=== PATIENT | female | born 1940 | race Caucasian/White ===

== ENCOUNTER 2019-05-31 06:40 | Outpatient (CLI) | payer MEDICARE, OTHER, SELFPAY ==
[2019-05-31 07:27] LABS: Alanine Aminotransferase 14 U/L (4-35); Albumin Level 4.2 g/dL (3.5-5.1); Alkaline Phosphatase 75 U/L (38-126); Aspartate Amino Transferase 21 U/L (14-36); Bilirubin,Total 0.6 mg/dL (0.2-1.3); Blood Urea Nitrogen 14 mg/dL (7-17); Calcium 9.4 mg/dL (8.4-10.2); Carbon Dioxide 25 mmol/L (22-30); Chloride 105 mmol/L (98-107); Cholesterol 162 mg/dL (0-200); Estimated Glomerular Filt Rate > 60; Glucose 128 mg/dL (65-105); HDL Direct 41 mg/dL; Potassium 3.8 mmol/L (3.4-5.0); Sodium 140 mmol/L (137-145); Triglycerides 151 mg/dL (<150)
[2019-05-31 07:39] LABS: LDL Cholesterol Direct 99 mg/dL
[2019-05-31 07:45] LABS: Hemoglobin A1C 5.7 % (<5.7)
[2019-05-31 08:19] LABS: Vitamin D 25 Hydroxy 40.2 ng/mL
== END 2019-05-31 06:41 | disposition home or self-care (01) ==
PROVIDERS: PCP Internal Medicine; Visit Provider Internal Medicine
DX: I10 Essential (primary) hypertension (principal); Z79.899 Other long term (current) drug therapy; R73.02 Impaired glucose tolerance (oral); E78.5 Hyperlipidemia, unspecified; E55.9 Vitamin D deficiency, unspecified
CPT/HCPCS: 36415; 80053; 80061; 82306; 83036

== ENCOUNTER 2019-06-06 10:56 | Outpatient (CLI) | payer MEDICARE, OTHER, SELFPAY ==
--- NOTE | ~2019-06-06 | US_ITS ---
EXAMINATION: US carotid duplex BI DATE: 06/06/2019 11:35 INDICATION: Carotid atherosclerosis and stenosis. Transient ischemic episode. TECHNIQUE: Grayscale, color Doppler, and pulsed Doppler images of the cervical carotid arteries were obtained. The degree of vessel stenosis is placed in one of the following categories: normal, <50%, 5 0-69%, >=70% but less than near-occlusion, near-occlusion, or total occlusion. Note that percent sten osis relative to normal distal artery lumen diameter is indirectly measured from velocity measurement s as described by Joshua, et al. Radiology 2003; 229:340-346. COMPARISON: 12/21/2012 FINDINGS: RIGHT: The right common carotid artery (CCA) peak systolic velocity (PSV) is 87 cm/s. The right internal car otid artery (ICA) PSV is 64 cm/s. The right ICA end-diastolic velocity (EDV) is 22 cm/s. The right IC A/CCA PSV ratio is 0.7. Grayscale and color Doppler images yield an estimate of <50% diameter reducti on from plaque in the ICA. The external carotid artery (ECA) PSV is 105 cm/s. There is antegrade flow in the right vertebral artery. LEFT: The left CCA PSV is 86 cm/s. The left ICA PSV is 94 cm/s. The left ICA EDV is 30 cm/s. The left ICA/C CA PSV ratio is 1.1. Grayscale and color Doppler images yield an estimate of <50% diameter reduction from plaque in the ICA. The ECA PSV is 78 cm/s. There is antegrade flow in the left vertebral artery. IMPRESSION: 1. <50% stenosis in the right internal carotid artery. 2. <50% stenosis in the left internal carotid artery. Reviewed, dictated and finalized at location A.
== END 2019-06-06 10:57 | disposition home or self-care (01) ==
LOC: ANHIMG 10:58
PROVIDERS: PCP Internal Medicine; Visit Provider Internal Medicine
DX: I65.23 Occlusion and stenosis of bilateral carotid arteries (principal)
CPT/HCPCS: 93880

== ENCOUNTER 2019-11-15 06:59 | Outpatient (CLI) | payer MEDICARE, OTHER, SELFPAY ==
--- NOTE | 2019-11-15 | ECG_ITS ---
Measurements Intervals [place] Rate: 64 P: 51 ND: 216 QRS: -11 QRSD: 97 T: 32 QT: 424 QTc: 438 Interpretive Statements SINUS RHYTHM WITH FIRST DEGREE AV BLOCK EARLY PRECORDIAL R/S TRANSITION BASELINE ARTIFACT- II, III, AVF ABNORMAL ECG Electronically Signed On 11-15-2019 8:50:02 CDT by Ari Sharma D.O.
[2019-11-15 08:39] LABS: Albumin Level 4.4 g/dL (3.5-5.1)
[2019-11-15 09:15] LABS: Urine Cotinine NEGATIVE
[2019-11-15 09:57] LABS: Hemoglobin A1C 5.8 % (<5.7)
[2019-11-15 14:25] LABS: Creatinine Urine 93.7 mg/dL
== END 2019-11-15 07:00 | disposition home or self-care (01) ==
PROVIDERS: PCP Internal Medicine; Visit Provider Orthopaedic Surgery
DX: Z01.818 Encounter for other preprocedural examination (principal); M17.12 Unilateral primary osteoarthritis, left knee; I10 Essential (primary) hypertension; E78.5 Hyperlipidemia, unspecified; R94.31 Abnormal electrocardiogram [ECG] [EKG]
CPT/HCPCS: 80307; 82040; 82570; 83021; 83036; 93005

== ENCOUNTER 2019-11-21 11:13 | Outpatient (CLI) | payer MEDICARE, OTHER, SELFPAY ==
[2019-11-21 12:03] LABS: Hematocrit 42.3 % (37.0-47.0)
[2019-11-21 12:16] LABS: Estimated Glomerular Filt Rate > 60
== END 2019-11-21 11:14 | disposition home or self-care (01) ==
PROVIDERS: PCP Internal Medicine; Visit Provider Orthopaedic Surgery
DX: M17.12 Unilateral primary osteoarthritis, left knee (principal); I10 Essential (primary) hypertension; E78.5 Hyperlipidemia, unspecified
CPT/HCPCS: 36415; 82565; 85014; 85018

== ENCOUNTER 2019-12-07 07:26 | Outpatient (CLI) | payer MEDICARE, OTHER, SELFPAY ==
[2019-12-07 07:55] LABS: Alanine Aminotransferase 16 U/L (4-35); Albumin Level 4.6 g/dL (3.5-5.1); Alkaline Phosphatase 60 U/L (38-126); Anion Gap 5 mmol/L (8-16); Aspartate Amino Transferase 25 U/L (14-36); Bilirubin,Total 0.6 mg/dL (0.2-1.3); Blood Urea Nitrogen 11 mg/dL (7-17); Calcium 9.8 mg/dL (8.4-10.2); Carbon Dioxide 28 mmol/L (22-30); Chloride 103 mmol/L (98-107); Cholesterol 184 mg/dL (0-200); Estimated Glomerular Filt Rate > 60; Glucose 115 mg/dL (65-105); HDL Direct 46 mg/dL; Sodium 136 mmol/L (137-145); Triglycerides 114 mg/dL (<150)
[2019-12-07 08:11] LABS: Hemoglobin A1C 5.4 % (<5.7); LDL Cholesterol Direct 103 mg/dL
[2019-12-07 09:32] LABS: Vitamin D 25 Hydroxy 29.5 ng/mL
== END 2019-12-07 07:27 | disposition home or self-care (01) ==
PROVIDERS: PCP Internal Medicine; Visit Provider Internal Medicine
DX: R73.02 Impaired glucose tolerance (oral) (principal); I10 Essential (primary) hypertension; Z79.899 Other long term (current) drug therapy; E78.5 Hyperlipidemia, unspecified; E55.9 Vitamin D deficiency, unspecified
CPT/HCPCS: 36415; 80053; 80061; 82306; 83036

== ENCOUNTER 2020-06-05 07:10 | Outpatient (CLI) | payer MEDICARE, OTHER, SELFPAY ==
[2020-06-05 07:45] LABS: Hemoglobin A1C 5.1 % (<5.7)
[2020-06-05 07:46] LABS: Alanine Aminotransferase 13 U/L (4-35); Alkaline Phosphatase 62 U/L (38-126); Anion Gap 4 mmol/L (8-16); Aspartate Amino Transferase 23 U/L (14-36); Bilirubin,Total 0.5 mg/dL (0.2-1.3); Blood Urea Nitrogen 11 mg/dL (7-17); Calcium 9.2 mg/dL (8.4-10.2); Carbon Dioxide 31 mmol/L (22-30); Chloride 105 mmol/L (98-107); Cholesterol 191 mg/dL (0-200); Estimated Glomerular Filt Rate > 60; Glucose 104 mg/dL (65-105); HDL Direct 48 mg/dL; Potassium 3.8 mmol/L (3.4-5.0); Sodium 140 mmol/L (137-145); Triglycerides 106 mg/dL (<150)
[2020-06-05 07:57] LABS: LDL Cholesterol Direct 108 mg/dL
[2020-06-05 08:28] LABS: Vitamin D 25 Hydroxy 40.7 ng/mL
== END 2020-06-05 07:11 | disposition home or self-care (01) ==
PROVIDERS: PCP Internal Medicine; Visit Provider Nurse Practitioner
DX: E55.9 Vitamin D deficiency, unspecified (principal); E78.5 Hyperlipidemia, unspecified; R73.02 Impaired glucose tolerance (oral)
CPT/HCPCS: 36415; 80053; 80061; 82306; 83036

== ENCOUNTER 2020-09-30 14:07 | Outpatient (CLI) | payer MEDICARE, OTHER, SELFPAY ==
--- NOTE | ~2020-09-30 | CT_ITS ---
EXAMINATION: CT LE LT wo con DATE: 09/30/2020 14:44 INDICATION: Osteoarthritis of the left knee. TECHNIQUE: High resolution computed tomography (CT) of the left lower limb from the hip through the a nkle was performed without intravenous contrast. Additional sagittal and coronal reconstructions were performed. Automated exposure control and iterative reconstruction technique were employed. The dose -length product was 1724.25 mGy-cm. COMPARISON: Left knee radiographs dated 05/28/2020 FINDINGS: There is some streak artifact at the level of the left knee resulting from a total knee arthroplasty the contralateral right knee. Bone alignment is normal. No fracture. Osteoarthritis at the left knee with at least moderate joint space narrowing in the medial compartment which could be underestimated with nonweightbearing imaging. There are moderate size marginal osteophytes along both medial tibial plateau and weightbearing medial femoral condyle. There is also suggestion of some eburnation and a f ew scattered small subarticular cysts along both articular surfaces. Additional at least mild osteoar thritis with small marginal osteophytes at the lateral and patellofemoral compartments. Cluster of lo ose osteochondral bodies in the recess posterior to the intercondylar notch. Mild osteoarthritis at the left hip with posterior and posterosuperior predominant nonuniform joint s pace narrowing and small marginal osteophytes along the posterior superior acetabulum. Mild osteoarth ritis at the left ankle joint and a few joints in the midfoot. More prominent subtalar osteoarthritis with severe joint space narrowing at the anterior and middle facets. Heterotopic ossification along the deep deltoid ligament consistent with sequela of chronic sprain. No hip, knee or ankle joint effu sions. Thickening of the peroneus longus and brevis tendons consistent with tendinopathy. Sigmoid div erticulosis without adjacent inflammatory change to suggest diverticulitis. The uterus is not identif ied and has likely been surgically resected. No pathologically enlarged left pelvic or inguinal lymph adenopathy. IMPRESSION: 1. At least moderate severity medial compartment predominant tricompartmental osteoarthritis at the l eft knee. 2. 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 3. 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 4. Sigmoid diverticulosis. Reviewed, dictated and finalized at location A. IMPRESSION: 1. At least moderate severity medial compartment predominant tricompartmental o steoarthritis at the left knee. 2. 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 3. 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 4. Sigmoid diverticulosis.
== END 2020-09-30 14:08 | disposition home or self-care (01) ==
PROVIDERS: PCP Internal Medicine; Visit Provider Orthopaedic Surgery
DX: M17.12 Unilateral primary osteoarthritis, left knee (principal); K57.30 Diverticulosis of large intestine without perforation or abscess without bleeding
CPT/HCPCS: 73700

== ENCOUNTER 2020-10-06 07:31 | Outpatient (CLI) | payer MEDICARE, OTHER, SELFPAY ==
--- NOTE | 2020-10-06 | ECG_ITS ---
Measurements Intervals [place] Rate: 63 P: 39 AR: 172 QRS: -1 QRSD: 94 T: 42 QT: 407 QTc: 418 Interpretive Statements SINUS RHYTHM EARLY PRECORDIAL R/S TRANSITION BASELINE WANDER- I, III, AVR, AVL, AVF, V6 BORDERLINE ECG Electronically Signed On 10-06-2020 8:31:12 CDT by Ari Sharma D.O.
[2020-10-06 08:19] LABS: Hematocrit 43.5 % (37.0-47.0); Hemoglobin 14.5 g/dL (12.0-15.0)
[2020-10-06 08:39] LABS: Albumin Level 4.4 g/dL (3.5-5.1); Estimated Glomerular Filt Rate 60; Glucose 109 mg/dL (65-110)
[2020-10-06 08:51] LABS: Urine Cotinine NEGATIVE
== END 2020-10-06 07:32 | disposition home or self-care (01) ==
PROVIDERS: PCP Internal Medicine; Visit Provider Orthopaedic Surgery
DX: M17.12 Unilateral primary osteoarthritis, left knee (principal); Z01.818 Encounter for other preprocedural examination; I10 Essential (primary) hypertension; E78.5 Hyperlipidemia, unspecified; E87.6 Hypokalemia; Z87.891 Personal history of nicotine dependence
CPT/HCPCS: 80307; 82040; 82565; 82947; 85014; 85018; 93005

== ENCOUNTER 2020-12-10 07:11 | Outpatient (CLI) | payer MEDICARE, OTHER, SELFPAY ==
[2020-12-10 07:41] LABS: Alanine Aminotransferase 14 U/L (4-35); Albumin Level 4.4 g/dL (3.5-5.1); Alkaline Phosphatase 68 U/L (38-126); Anion Gap 5 mmol/L (8-16); Aspartate Amino Transferase 24 U/L (14-36); Bilirubin,Total 0.4 mg/dL (0.2-1.3); Blood Urea Nitrogen 14 mg/dL (7-17); Calcium 9.7 mg/dL (8.4-10.2); Carbon Dioxide 29 mmol/L (22-30); Chloride 105 mmol/L (98-107); Cholesterol 183 mg/dL (0-200); Estimated Glomerular Filt Rate > 60; Glucose 114 mg/dL (65-110); HDL Direct 48 mg/dL; Sodium 139 mmol/L (137-145); Triglycerides 94 mg/dL (<150)
[2020-12-10 07:52] LABS: LDL Cholesterol Direct 99 mg/dL
[2020-12-10 08:41] LABS: Vitamin D 25 Hydroxy 42.4 ng/mL
== END 2020-12-10 07:12 | disposition home or self-care (01) ==
PROVIDERS: PCP Internal Medicine; Visit Provider Internal Medicine
DX: E78.5 Hyperlipidemia, unspecified (principal); I10 Essential (primary) hypertension; E55.9 Vitamin D deficiency, unspecified
CPT/HCPCS: 36415; 80053; 80061; 82306

== ENCOUNTER 2020-12-15 13:51 | Outpatient (CLI) | payer MEDICARE, OTHER, SELFPAY ==
[2020-12-15 15:16] LABS: Urine Cotinine NEGATIVE
[2020-12-15 15:20] LABS: Hemoglobin A1C 5.5 % (<5.7)
[2020-12-15 15:25] LABS: Basophils Percent Auto 0.4 % (0.2-1.2); Eosinophils Absolute Auto 0.1 K/mm3 (0-0.3); Eosinophils Percent Auto 1.3 % (0-4.4); Hematocrit 42.3 % (37.0-47.0); Hemoglobin 14.6 g/dL (12.0-15.0); Immature Granulocyte Absolute 0.01 K/mm3 (0.00-0.031); Immature Granulocyte Percent A 0.1 % (0-0.5); Lymphocytes Absolute Auto 2.85 K/mm3 (0.9-3.2); Lymphocytes Percent Auto 42.7 % (18.3-44.2); Mean Corpuscular HGB Conc 34.5 g/dl (32-36); Mean Corpuscular Hemoglobin 31.9 pg (26-34); Mean Corpuscular Volume 92.4 fl (80-100); Mean Platelet Volume 9.5 fl (7.4-10.4); Monocytes Absolute Auto 0.5 K/mm3 (0.1-0.6); Monocytes Percent Auto 7.2 % (2.6-8.5); Neutrophils Absolute Auto 3.2 K/mm3 (1.3-6.7); Neutrophils Percent Auto 48.3 % (45.5-73.1); Platelet Count Result 274 k/mm3 (150-375); Red Blood Count 4.58 M/mm3 (4.2-5.4); Red Cell Distribution Width 12.2 % (11.5-14.5); White Blood Count 6.7 K/mm3 (4.5-10.0)
== END 2020-12-15 13:52 | disposition home or self-care (01) ==
LOC: ANHSURGERY 13:55
PROVIDERS: PCP Internal Medicine; Visit Provider Orthopaedic Surgery
DX: M17.12 Unilateral primary osteoarthritis, left knee (principal); Z01.818 Encounter for other preprocedural examination
CPT/HCPCS: 80307; 83036; 85025; 87081

== ENCOUNTER 2021-01-06 00:12 | Day surgery (SDC) | payer MEDICARE, OTHER, SELFPAY ==
[2020-12-15 14:13] VITALS: BP 152/76; PULSE 70; RESP 18; TEMP 36.6; O2SAT 95; BMI 26.6
--- NOTE | 2021-01-05 12:01 | WPDANESEPPF ---
Anes - Initial Pre Proc Eval Procedure: Operation Date: 01/06/21 07:30 Proposed Procedures p Left Custom Total Knee Arthroplasty - Michael Benavidez MD Date/Time: 01/05/21 12:01 Surgeon: Michael Benavidez MD Pre Op Diagnosis: primary OA left knee Patient Data Age: 80 Gender: F Height: 1.6 m Weight: 68.2 kg Last Vital Signs Temp 36.6 C 12/15/20 14:13 Pulse 70 12/15/20 14:13 Resp 18 12/15/20 14:13 BP 152/76 H 12/15/20 14:13 Pulse Ox 95 12/15/20 14:13 Allergies Allergy/AdvReac Type Severity Reaction Status Date / Time adhesive tape Allergy Intermediate REDNESS Verified 01/06/21 06:01 Home Medications Medication Instructions Recorded Confirmed Type aspirin 81 mg tablet,delayed 81 mg PO DAILY 11/30/19 01/06/21 History release cholecalciferol (vitamin D3) 25 25 mcg PO DAILY 06/11/20 01/06/21 History mcg (1,000 unit) capsule pantoprazole 20 mg tablet,delayed 20 mg PO QAM #90 tablet 06/11/20 01/06/21 Rx release mometasone 0.1 % topical cream See Rx Instructions TOPICAL 09/30/20 01/06/21 Rx .COMPLEX #15 gm metoprolol succinate 25 mg HS 12/15/20 01/06/21 History simvastatin 20 mg HS 12/15/20 01/06/21 History Patient hx anesthesia problems: none Family hx anesthesia problems: none Results Review: All pre-operative results and documents have been reviewed as part of the pre-operative evaluation. [facility] Past Medical History Medical History (Updated 01/05/21 @ 12:02 by Skyler Gray DO) Essential hypertension Ganglion cyst of volar aspect of right wrist History of cerebral aneurysm Mixed hyperlipidemia Polyosteoarthritis, unspecified Post-menopause Primary osteoarthritis of both knees Screening for breast cancer Screening for colon cancer Screening for osteoporosis Surgical History Surgical History History of brain surgery 2012 History of tonsillectomy History of total hysterectomy 1986 History of total right knee replacement (~11/28/18) Family History Family History Sibling Family history of rheumatoid arthritis Patient's brother is in good health Mother Carcinoma of colon, Onset Age: 60 Patient's mother is Father Patient's father is Acute myocardial infarction, Onset Age: 54 Family history of cardiovascular disease Sibling Lung cancer Social History Social History Smoking status: Former smoker Tobacco type: cigarettes Second hand tobacco smoke exposure: No Smoking end date: 03/21/1967 Additional smoking assessment comments: PT STATES SMOKING SOCIALLY FOR SHORT TIME QUIT 1967 Alcohol intake: current Alcohol use details: STATES MAYBE 6-8 TIMES A YEAR Substance use: never Substance use type: does not use Living arrangements: alone 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 Informed Consent: The patient's anesthetic plan and its attendant risks and benefits were discussed with the patient/family/POA. Questions were solicited and answers provided to the satisfaction of the patient/family/POA.
--- NOTE | 2021-01-05 12:03 | WPDANESPNB ---
Anes - Peripheral Nerve Block Date/Time: 01/05/21 12:03 I have discussed with the patient/family/POA the placement of a peripheral nerve block for post-operative pain management, including associated risks, benefits, complications, and side effects. Alternative methods of post-operative analgesia were detailed. Questions were solicited and answers provided to the satisfaction of the patient/family/POA. Time-Out: A pre-procedural Time-Out was completed immediately before starting the procedure and confirmed: Patient Identification, Site, Procedure, Patient Position and the Availability of Requisite Equipment. Clinical Indications: Acute post-operative pain management requested by the operative surgeon. Nerve Block Insertion Note Anes-nerve block: adductor canal left Patient position: supine Skin prep: chlorhexidine Needle: 22 gauge, stimulating, insulated echogenic needle. Needle length: 80 mm Technique: ultrasound Injectate: bupivacaine 0.5% with epi 5 mcg/ml (30cc - no epi) Observations: tolerated well Complications: none
[2021-01-06] VITALS (17 sets, daily range): BP systolic 111–162; BP diastolic 52–68; PULSE 70–95; RESP 9–18; TEMP 36.1–36.8; O2SAT 92–99
--- NOTE | ~2021-01-06 | XR_ITS ---
EXAMINATION: XR knee LT 2V DATE: 01/06/2021 10:39 INDICATION: Left knee arthroplasty. Postop. TECHNIQUE: 2 views of left knee were obtained. COMPARISON: Left knee radiographs 05/28/2020 FINDINGS: There is a total left knee arthroplasty with patellar resurfacing in near-anatomic alignmen t. No fracture. There is gas in the knee joint and soft tissues, consistent with recent surgery. IMPRESSION: 1. Total left knee arthroplasty in near-anatomic alignment. Reviewed, dictated and finalized at location A.
[2021-01-06] MEDS: ACETAMINOPHEN 500 MG TABLET 1000 MG PO (06:05)
[2021-01-06] MEDS: LACTATED RINGERS 1,000 ML 30 ML IV CONT ×2 (06:28→10:19)
[2021-01-06] MEDS: TRANEXAMIC ACID 1,000MG/ISO100 1,000 MG/100 ML BAG 200 MG IVPB (07:05)
--- NOTE | 2021-01-06 07:16 | WPDHPUPDATE1 ---
History and Physical Update Update Date/Time: 01/06/21 07:16 History and Physical has been reviewed, including an updated exam of the patient. There are NO changes in the patient's condition. Risks, benefits, and alternatives have been discussed and questions answered. Patient agrees to proceed with procedure.
--- NOTE | 2021-01-06 07:25 | WPDANESPNB ---
Anes - Peripheral Nerve Block Date/Time: 01/06/21 07:25 I have discussed with the patient/family/POA the placement of a peripheral nerve block for post-operative pain management, including associated risks, benefits, complications, and side effects. Alternative methods of post-operative analgesia were detailed. Questions were solicited and answers provided to the satisfaction of the patient/family/POA. Time-Out: A pre-procedural Time-Out was completed immediately before starting the procedure and confirmed: Patient Identification, Site, Procedure, Patient Position and the Availability of Requisite Equipment. Clinical Indications: Acute post-operative pain management requested by the operative surgeon. Nerve Block Insertion Note Anes-nerve block: adductor canal left Patient position: supine Skin prep: chlorhexidine Needle: 22 gauge, stimulating, insulated echogenic needle. Needle length: 80 mm Technique: ultrasound Technique comment: mid2mg morphine 10mg Injectate: bupivacaine 0.5% with epi 5 mcg/ml (30cc - no epi) and dexamethasone (mg) (4) Observations: tolerated well Complications: none Procedure start time:: 714 Procedure end time:: 721
[2021-01-06] MEDS: ceFAZolin 2 GM/D5W 50 ML 2 GM/50 ML BAG IVPB ×3 (07:28→22:30)
[2021-01-06] MEDS: GENTAMICIN BONE CEMENT REFOBACIN 1 EACH TOPICAL (08:11)
--- NOTE | 2021-01-06 10:27 | P.OP_ITS ---
Procedure Note - Detailed Date of Procedure 01/06/21 Pre-op Diagnosis Primary OA left knee Post-op Diagnosis same Procedure Performed Total knee arthroplasty, left. Surgeon Michael Benavidez MD Inspector [employer] Asmita Sales PA-C Anesthesia general and regional (Subsartorial block.) Findings Good bone quality. Optimal fit and balance of custom knee. Slight PCL balancing release. Description of Procedure Preoperative antibiotics were given. The limb was prepped and draped in the usual sterile fashion with a well-padded tourniquet high on the thigh. The limb was exsanguinated and the tourniquet inflated to 300 mmHg. A longitudinal incision was created just medial to the patella. A trivector approach to the knee was performed. Arthrotomy was taken down through the joint capsule. No significant releases were initially taken. The femur was exposed and the F1 jig was applied. The coring tool was used to remove the cartilage for the F2 jig to sit flush with the bone. The jig was pinned and the distal cut carefully taken. Caliper measurements confirmed appropriate bony resections according to the preoperative templated plan. The F4 cutting jig for the femur was applied, at the standard rotation. The AP and anterior chamfer cuts were taken. The F5 jig was applied and the posterior chamfer cuts were taken. The tibia was prepared using the T1 jig, after removing cartilage for the jig contact points. Proper alignment was checked with the alignment josiane. The tibia was cut using the T1u guide. Gap balancing was performed. Gap measurements were taken and the knee was trialed. Excellent alignment and soft tissue balancing was confirmed. The posterior cruciate ligament was recessed along the proximal tibia. The patella was cut for resurfacing. Three lug holes were drilled. Meniscal remnants were removed. The trial components were assembled. Excellent range of motion and proper soft tissue balancing were confirmed throughout the full range of motion. Patellar tracking was excellent. The knee was copiously irrigated periodically throughout the procedure. The real implants were cemented into position. Final trialing and selection of final poly thickness performed. Excess cement was carefully removed. The wound was closed in layers with interrupted #1 Vicryl suture, 2-0 strata fix suture, 0 strata fix suture, 2-0 strata fix suture. Steri-Strips placed on the skin with the knee flexed. Sterile bulky dressing applied. The patient was brought to the recovery room in stable condition. There were no complications. Physician environmental engineering assistant, Asmita Sales PA-C, required for surgery; including patient positioning, draping, tissue retraction, maintaining instrument position, cement removal, wound closure, and dressing placement. Implants Conformis Custom total knee arthroplasty. Cemented. Cruciate retaining. 7B insert. 32 mm round patella. Estimated Blood Loss 50 Tourniquet Time 90 Drains No Complications No immediate complications Condition stable Disposition PACU
[2021-01-06] MEDS: ONDANSETRON INJ 4 MG/2 ML VIAL IV PUSH ×3 (10:38→18:46)
[2021-01-06] MEDS: SODIUM CHLORIDE 0.9% IV 1,000 ML 125 ML IV CONT (13:18)
--- NOTE | 2021-01-06 13:22 | PCOTNOTE ---
Attempted OT Evaluation, unable to complete due to patient's increased nausea, will follow and attempt at alter time.
[2021-01-06] MEDS: oxyCODONE HCL (*CRX) 5 MG TAB IR PO (16:35)
[2021-01-06] MEDS: DOCUSATE SODIUM 100 MG CAPSULE PO (16:36)
[2021-01-06] MEDS: ASPIRIN 81 MG ENTERIC TABLET PO (16:36)
[2021-01-06] MEDS: METOPROLOL SUCCINATE EXT REL 25 MG TABCR PO (21:06)
[2021-01-06] MEDS: SIMVASTATIN 20 MG TABLET PO (21:06)
[2021-01-07 00:37] VITALS: BP 125/62; PULSE 62; RESP 16; TEMP 36.8; O2SAT 96
[2021-01-07 05:52] VITALS: BP 158/60; PULSE 83; RESP 16; TEMP 36.2; O2SAT 92
[2021-01-07] MEDS: ceFAZolin 2 GM/D5W 50 ML 2 GM/50 ML BAG IVPB (06:34)
[2021-01-07] MEDS: oxyCODONE HCL (*CRX) 5 MG TAB IR PO (06:38)
[2021-01-07 08:48] VITALS: RESP 18; O2SAT 95
[2021-01-07] MEDS: DOCUSATE SODIUM 100 MG CAPSULE PO (08:48)
[2021-01-07] MEDS: CHOLECALCIFEROL 1,000 UNITS TABLET 1000 UNITS PO (08:48)
[2021-01-07] MEDS: ASPIRIN 81 MG ENTERIC TABLET PO (08:48)
[2021-01-07] MEDS: PANTOPRAZOLE SOD SESQUIHYDRATE 20 MG TAB PO (08:48)
[2021-01-07 08:56] VITALS: BP 121/56; PULSE 77; RESP 18; TEMP 37.1; O2SAT 95
[2021-01-07] MEDS: oxyCODONE HCL (*CRX) 5 MG TAB IR 10 MG PO (10:43)
--- NOTE | 2021-01-07 12:44 | P.DS_ITS ---
DS: Admitting Diagnosis Discharge Date 01/07/21 Admitting Diagnosis OA knee Left DS: Discharge Diagnosis Discharge Diagnosis (1) Orthopedic aftercare for joint replacement: Code(s): Z47.1 - Aftercare following joint replacement surgery Status: Acute (2) Status post total left knee replacement: Code(s): Z96.652 - Presence of left artificial knee joint Status: Acute Assessment and Plan: Postop day 1: Left total knee arthroplasty. Patient tolerated procedure well. No complications. Some post op N/V. This has resolved. Pain manageable with pain medication. No numbness or tingling. We had a lengthy discussion regarding postoperative wound care, limitations, expectations, and exercises. Patient shows good understanding. She has had initial physical therapy and is tolerating it well. DVT prophylaxis: 81 mg baby aspirin b.i.d. for 14 days. Pain medication: Percocet. Patient has follow up appointment with Dr. Benavidez in 3 weeks. DS: Summary Hospital Course Reason for hospitalization: Total knee arthroplasty Hospital Course: Patient tolerated procedure well. Has had initial PT/OT. Status at Discharge Functional status at discharge: uses cane/walker Overall status at discharge: patient is progressing back to baseline Time Spent with Patient Time attestation: Total time spent providing and/or coordinating discharge services: Exam Narrative: Elderly 80-year-old normal weight female. Resting comfortably in bed. Alert and oriented x3. No acute distress. Wearing compression socks bilaterally. Dressing dry and intact without drainage. Moderate swelling. No ecchymosis. No erythema. No hematoma. Range of motion limited due to pain. Calf nontender. Neurologic status intact. No varicosities. Distal pulses palpable. Discharge Plan Discharge Patient Disposition: Home, Self-Care Discharge Instructions: See instruction sheet Patient Instructions: Joint Replacement Surgery (DC), Pain Management After Surgery (DC) Stand Alone Forms: General Discharge Instructions Follow-up/Referrals: Asmita Sales PA [Physician Net Technical Architect] - Discharge Medications: New aspirin 81 mg tablet,delayed release (DR/EC) 81 mg PO BID 14 Days Qty: 28 RF: 0 oxycodone-acetaminophen 5-325 mg tablet 1 - 2 tablet PO Q4-6H MDD 8 PRN (Reason: pain) Qty: 30 RF: 0 Continued cholecalciferol (vitamin D3) 25 mcg (1,000 unit) capsule 25 mcg PO DAILY RF: 0 pantoprazole 20 mg tablet,delayed release (DR/EC) 20 mg PO QAM Qty: 90 RF: 2 simvastatin 20 mg tablet 20 mg HS RF: 0 metoprolol succinate 25 mg tablet extended release 24 hr 25 mg HS RF: 0 mometasone 0.1 % cream See Rx Instructions TOPICAL .COMPLEX Qty: 15 RF: 2 Held aspirin [Adult Aspirin Regimen] 81 mg tablet,delayed release (DR/EC) 81 mg PO DAILY RF: 0 Hold Instructions: Resume on 01/22/21.
--- NOTE | 2021-01-07 13:12 | WPDANESPN ---
Anes - Prog Note Post-Op Date/Time: 01/07/21 13:12 Cardiovascular status: normal Respiratory status: normal Airway patency: baseline Mental status: baseline Post-Op hydration status: normal Vital Signs: Last Vital Signs Temp 37.1 C 01/07/21 08:56 Pulse 77 01/07/21 08:56 Resp 18 01/07/21 08:56 BP 121/56 L 01/07/21 08:56 Pulse Ox 95 01/07/21 08:56 Pain Score (VAS): 0 I/O: Intake & Output 01/06/21 01/07/21 01/07/21 23:59 07:59 15:59 Intake Total 1300 250 480 Output Total 900 500 950 Balance 400 -250 -470 Post-procedural complaints: none Patient Feedback: Patient satisfied with anesthetic care.
== END 2021-01-07 13:15 | disposition home or self-care (01) ==
LOC: ANHSURGERY 05:52 → ANH2MED 01-07 12:44
PROVIDERS: PCP Internal Medicine; Visit Provider Orthopaedic Surgery
PROC: (CPT 27447; principal; 2021-01-06 07:30)
DX: M17.12 Unilateral primary osteoarthritis, left knee (principal); G89.18 Other acute postprocedural pain; I10 Essential (primary) hypertension; E78.2 Mixed hyperlipidemia; Z79.82 Long term (current) use of aspirin; Z87.891 Personal history of nicotine dependence
CPT/HCPCS: 27447; 64447; 36415; 73560; 86850; 86900; 86901; 97110; 97116; 97161; 97165; 97530; A9270; C1713; C1776; J0131; J0171; J0690; J1100; J1885; J2250; J2270; J2405; J2704; J2795; J3010; J7030; J7120

== ENCOUNTER 2021-02-24 12:15 | Outpatient (CLI) | payer MEDICARE, OTHER, SELFPAY ==
--- NOTE | ~2021-02-24 | US_ITS ---
EXAMINATION: US carotid duplex BI DATE: 02/24/2021 12:56 INDICATION: Carotid atherosclerosis and stenosis. Other signs/symptoms of the circulatory/respiratory systems. TECHNIQUE: Grayscale, color Doppler, and pulsed Doppler images of the cervical carotid arteries were obtained. The degree of vessel stenosis is placed in one of the following categories: normal, <50%, 5 0-69%, >=70% but less than near-occlusion, near-occlusion, or total occlusion. Note that percent sten osis relative to normal distal artery lumen diameter is indirectly measured from velocity measurement s as described by Joshua, et al. Radiology 2003; 229:340-346. COMPARISON: 06/06/2019 FINDINGS: RIGHT: The right common carotid artery (CCA) peak systolic velocity (PSV) is 103 cm/s. The right internal ca rotid artery (ICA) PSV is 81 cm/s. The right ICA end-diastolic velocity (EDV) is 25 cm/s. The right I CA/CCA PSV ratio is 0.8. Grayscale and color Doppler images yield an estimate of <50% diameter reduct ion from plaque in the ICA. The external carotid artery (ECA) PSV is 125 cm/s. There is antegrade marisol w in the right vertebral artery. LEFT: The left CCA PSV is 87 cm/s. The left ICA PSV is 144 cm/s. The left ICA EDV is 44 cm/s. The left ICA/ CCA PSV ratio is 1.7. Grayscale and color Doppler images yield an estimate of 50-69% diameter reducti on from plaque in the ICA. The ECA PSV is 89 cm/s. There is antegrade flow in the left vertebral joao ry. IMPRESSION: 1. <50% stenosis in the right internal carotid artery. 2. 50-69% stenosis in the left internal carotid artery. Reviewed, dictated and finalized at location B. 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
== END 2021-02-24 12:16 | disposition home or self-care (01) ==
PROVIDERS: PCP Internal Medicine; Visit Provider Nurse Practitioner
DX: I65.23 Occlusion and stenosis of bilateral carotid arteries (principal)
CPT/HCPCS: 93880

== ENCOUNTER 2021-03-11 15:00 | Outpatient (RCR) | payer MEDICARE, OTHER, SELFPAY ==
--- NOTE | 2021-02-03 10:25 | PTOPEVAL ---
Thank you for referring Akanksha Banuelos to [facility].? The patient is scheduled to be seen for therapy? 2 x/week for 6 weeks. Please review, sign, date and return this plan of care DEANGELO. I agree with and certify that the following plan of care is medically necessary. Referring Physician Date Attending Provider: Michael Benavidez MD Diagnosis left TKR Onset 01/06/21 Additional Evaluation Detail She cancelled her 1st PT visits and did not reschedule. Subjective Information She is using a ww in the house Query Text:As Reported By Patient/ and a cane in the community. Family She is performing her HEP 3x/ day. She reports limitations with knee motion. She denies any problems with ADL's, transfers from chair or car. 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 She cont to use ice on the knee. Prior Level of Function Home Setting Home Type Multi level Home Environmental Barriers Railing, Ascend Right,Stairs, 2-4,Stairs, Greater than 4 Living Situation Alone Mobility Assistive Devices (Used Last 3 Cane,Walker, Wheeled Months) Comments Additional Prior Level of Function She has 1 step to enter house Comments without railing and 7 steps inside with right railing. She has a walker on each level except for the basement level. Pain Assessment Self Report Pain Assessment Left Knee(s) Reported Pain Level 3 Pain Description Cramping Pain Frequency Acute Lowest Pain Intensity 0 Greatest Pain Intensity 7 Pain Aggravating Factors Prolonged Position,Stair Climbing Lower Extremity Range of Motion Knee Range of Motion Right Knee Flexion Range of Motion - Active 120 Knee Extension Range of Motion - Active 0 Left Knee Flexion Range of Motion - Active 90 Knee Flexion Range of Motion - Passive 93 Knee Extension Range of Motion - Active 10 Knee Range of Motion Limitations Contracture,Edema,Pain,Soft Tissue Restriction Lower Extremity Muscle Strength Testing Hip Strength Right Hip Flexion Strength 4- Good - Hip Extension Strength 3- Fair - Hip Abduction Strength 2 Poor Left Hip Flexion Strength 4- Good - Hip Extension Strength 2+ Poor + Hip Abduction Strength 2 Poor Knee Strength Rig
--- NOTE | 2021-03-04 11:21 | PCPTNOTE ---
Patient did not show up for scheduled appointment this date.Called pt, she thought her appt was scheduled for 03/05. She has been rescheduled for next week.
--- NOTE | 2021-03-11 15:36 | PTOPEVAL ---
Physical Therapy Discharge Summary Thank you for referring Akanksha Banuelos to [facility]She has received 9 therapy visits to address her knee limitation following TKR. As a result of skilled therapy services she demonstrates improved knee motion, improve leg strength and improved ability to perform normal daily task. She has achieved her therapy goals at this time. Will plan to DC skilled therapy services with recommendations for her to continue with her HEP. Please review, sign, date and return this discharge summary DEANGELO. I agree with and certify that the following plan of care is medically necessary. Referring Physician Date Attending Provider: Michael Benavidez MD Diagnosis left TKR Onset 01/06/21 Subjective Information She is walking in the house Query Text:As Reported By Patient/ and community without AD. She Family is performing her HEP day. Reports improved knee pain. She reports improved knee motion. Reports she knee strain with descending steps. She uses the railing for support. Denies problems with ADL's and IADL's. Pain Assessment Left Knee(s) Reported Pain Level 0 Lowest Pain Intensity 0 Greatest Pain Intensity 4 Lower Extremity Range of Motion Knee Range of Motion Left Knee Flexion Range of Motion - Active 115 Knee Flexion Range of Motion - Passive 118 Knee Extension Range of Motion - Active -3 Knee Range of Motion Limitations Soft Tissue Restriction Lower Extremity Muscle Strength Testing Hip Strength Right Hip Flexion Strength 4+ Good + Hip Extension Strength 3+ Fair + Hip Abduction Strength 3+ Fair + Left Hip Flexion Strength 4+ Good + Hip Extension Strength 3+ Fair + Hip Abduction Strength 3+ Fair + Knee Strength Right Knee Flexion Strength 4- Good - Knee Extension Strength 5 Normal Left Knee Flexion Strength 4- Good - Knee Extension Strength 5 Normal Extremity Circumference Assessment Circumference Assessment Location Left Body Part Knee Site Descriptor ([place]) mid-patella Circumference (cm) 39 Noninvolved Side Circumference (cm) 38 Circumference Comments superior patella: left: 40 cm, left: 38 cm Balance Assessment 5 Time Sit to Stand Time in Seconds 16 5 Time Sit to Stand Comments use of UE for assist, = LE WB, Query Text:Normative Data: If Greater proper LE control Than 15 Seconds, 74% Increase Risk for Recurrent Falls Gait Assessment Gait Pattern Assessment Gait Pattern Observed Decreased Stride Length - Left,
== END 2021-03-12 14:00 | disposition home or self-care (01) ==
LOC: ANHPT 15:00
PROVIDERS: PCP Internal Medicine; Visit Provider Orthopaedic Surgery
DX: Z47.1 Aftercare following joint replacement surgery (principal); Z96.652 Presence of left artificial knee joint
CPT/HCPCS: 97110; 97112; 97140; 97162

== ENCOUNTER 2021-07-01 07:07 | Outpatient (CLI) | payer MEDICARE, OTHER, SELFPAY ==
[2021-07-01 07:46] LABS: Alanine Aminotransferase 12 U/L (4-35); Albumin Level 4.2 g/dL (3.5-5.1); Alkaline Phosphatase 63 U/L (38-126); Anion Gap 6 mmol/L (8-16); Aspartate Amino Transferase 24 U/L (14-36); Bilirubin,Total 0.8 mg/dL (0.2-1.3); Blood Urea Nitrogen 9 mg/dL (7-17); Calcium 9.4 mg/dL (8.4-10.2); Carbon Dioxide 28 mmol/L (22-30); Chloride 105 mmol/L (98-107); Cholesterol 161 mg/dL (0-200); Estimated Glomerular Filt Rate > 60; Glucose 104 mg/dL (65-110); HDL Direct 44 mg/dL; Potassium 3.7 mmol/L (3.4-5.0); Sodium 139 mmol/L (137-145); Triglycerides 87 mg/dL (<150)
[2021-07-01 07:50] LABS: Hemoglobin A1C 5.2 % (<5.7)
[2021-07-01 07:57] LABS: LDL Cholesterol Direct 81 mg/dL
[2021-07-01 08:30] LABS: Vitamin D 25 Hydroxy 41.2 ng/mL
== END 2021-07-01 07:08 | disposition home or self-care (01) ==
LOC: ANHLAB 07:09
PROVIDERS: PCP Internal Medicine; Visit Provider Nurse Practitioner
DX: E78.5 Hyperlipidemia, unspecified (principal); R73.02 Impaired glucose tolerance (oral); E55.9 Vitamin D deficiency, unspecified
CPT/HCPCS: 36415; 80053; 80061; 82306; 83036

== ENCOUNTER 2021-08-01 12:07 | Emergency (ER) | payer MEDICARE, OTHER, SELFPAY ==
--- NOTE | ~2021-08-01 | XR_ITS ---
XR humerus LT DATE: 08/01/2021 12:38 INDICATION: Fall. Laceration to upper arm. Possible foreign body. TECHNIQUE: 2 views COMPARISON: None FINDINGS: No fracture or dislocation, periosteal reaction or bone destruction. Normal alignment at th e, clavicular, glenohumeral and elbow joints. No radiopaque soft tissue foreign body. IMPRESSION: Negative Reviewed, dictated and finalized at location A. IMPRESSION: Negative
[2021-08-01 12:23] VITALS: BP 158/67; PULSE 77; RESP 18; TEMP 36.8; O2SAT 98
--- NOTE | 2021-08-01 12:30 | ED.WOUNDLAC ---
HPI - Wound/Laceration General Chief Complaint: Wound/Laceration Stated Complaint: Laceration on left arm Time Seen by Provider: 08/01/21 12:31 Source: patient Mode of arrival: ambulatory Limitations: no limitations History of Present Illness HPI narrative: 81-year-old female presents with laceration to left arm. Patient states that she was trimming back bamboo branches and she fell over into the branches. Unsure what stuck card to her left upper arm but she believes it may have been a bamboo branch. Bleeding is controlled. Unsure of last tetanus vaccine. Is concerned that she needs an antibiotic due to a recent knee replacement. She has full range of motion to left arm. All systems reviewed and negative except as noted above. Related Data Home Medications Medication Instructions Recorded Confirmed cholecalciferol (vitamin D3) 25 25 mcg PO DAILY 06/11/20 08/01/21 mcg (1,000 unit) capsule Allergies Allergy/AdvReac Type Severity Reaction Status Date / Time adhesive tape Allergy Intermediate REDNESS Verified 08/01/21 12:22 Review of Systems Review of Systems: CONSTITUTIONAL: Denies fever, chills, or sweats. EYES: Denies visual changes, redness, or discharge. ENT: Denies rhinorrhea, congestion, sore throat, or otalgia. CARDIOVASCULAR: Denies chest pain, palpitations, or edema. RESPIRATORY: Denies cough or dyspnea. GASTROINTESTINAL: Denies abdominal pain, nausea, vomiting, or diarrhea. GENITOURINARY: Denies dysuria or hematuria. SKIN: Denies rash or itching. Reports laceration to left upper arm. MUSCULOSKELETAL: Denies back pain, joint pain, or myalgia. NEUROLOGIC: Denies headache, numbness, or weakness. PSYCHIATRIC: Denies anxiety or depression. All other systems reviewed are negative, except as documented in HPI. [facility] Past Medical History Medical History Essential hypertension Ganglion cyst of volar aspect of right wrist History of cerebral aneurysm Mixed hyperlipidemia Polyosteoarthritis, unspecified Post-menopause Primary osteoarthritis of both knees Screening for breast cancer Screening for colon cancer Screening for osteoporosis Surgical History Surgical History History of brain surgery 2012 History of tonsillectomy History of total hysterectomy 1986 History of total left knee replacement (~10/19/21) History of total right knee replacement (~11/28/18) Family History Family History Sibling Family history of rheumatoid arthritis Patient's brother is in good health Mother Carcinoma of colon, Onset Age: 60 Patient's mother is Father Patient's father is Acute myocardial infarction, Onset Age: 54 Family history of cardiovascular disease Sibling Lung cancer Social History Social History Smoking status: Never smoker Tobacco type: cigarettes Second hand tobacco smoke exposure: No Smoking end date: 03/21/1967 Additional smoking assessment comments: PT STATES SMOKING SOCIALLY FOR SHORT TIME QUIT 1967 Alcohol intake: never Alcohol use details: STATES MAYBE 6-8 TIMES A YEAR Substance use: never Substance use type: does not use 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 There is no relevant family history pertinent to the presenting complaint. Exam Narrative: GENERAL: This is a well-nourished, well-developed patient, in no apparent distress. HEAD: normocephalic, atraumatic. EYES: PERRL. Sclera clear/white. Vision is grossly intact. EARS: External ears normal NOSE: External nose normal NECK: Neck supple, non-tender without lymphadenopathy, masses or thyro
[2021-08-01] MEDS: TETANUS,DIPHTHERIA,AC PERTUSSIS ADULT (0.5 ML) BOOSTRIX IM (13:01)
== END 2021-08-01 13:45 | disposition home or self-care (01) ==
PROVIDERS: Emergency Provider Nurse Practitioner Family; PCP Internal Medicine
DX: S41.112A Laceration without foreign body of left upper arm, initial encounter (principal); W19.XXXA Unspecified fall, initial encounter; Z23 Encounter for immunization; Z87.891 Personal history of nicotine dependence; I10 Essential (primary) hypertension; E78.2 Mixed hyperlipidemia; M17.0 Bilateral primary osteoarthritis of knee; Z96.653 Presence of artificial knee joint, bilateral
CPT/HCPCS: 12032; 73060; 90471; 90715; 99213; G0463

== ENCOUNTER 2021-08-11 13:13 | Emergency (ER) | payer MEDICARE, OTHER, SELFPAY ==
[2021-08-11 13:23] VITALS: BP 137/55; PULSE 72; RESP 20; TEMP 36.5; O2SAT 98
--- NOTE | 2021-08-11 13:24 | ED.WOUNDLAC ---
HPI - Wound/Laceration General Chief Complaint: Wound/Laceration Stated Complaint: Suture Removal Time Seen by Provider: 08/11/21 13:24 Source: patient and RN notes reviewed Mode of arrival: ambulatory Limitations: no limitations Related Data Home Medications Medication Instructions Recorded Confirmed cholecalciferol (vitamin D3) 25 25 mcg PO DAILY 06/11/20 08/11/21 mcg (1,000 unit) capsule Allergies Allergy/AdvReac Type Severity Reaction Status Date / Time adhesive tape Allergy Intermediate REDNESS Verified 08/11/21 13:19 Review of Systems Review of Systems: CONSTITUTIONAL: Denies body aches, fever, chills, or sweats. ENT: Denies rhinorrhea, congestion, sore throat, or otalgia. CARDIOVASCULAR: Denies chest pain, palpitations, or edema. RESPIRATORY: Denies cough or dyspnea. GASTROINTESTINAL: Denies abdominal pain, nausea, vomiting, or diarrhea. GENITOURINARY: Denies dysuria or hematuria. SKIN: right thumb laceration MUSCULOSKELETAL: Denies back pain, joint pain, or myalgia. NEUROLOGIC: Denies headache, numbness, tingling, or weakness. PSYCH: Denies depression or anxiety. [facility] Past Medical History Medical History Essential hypertension Ganglion cyst of volar aspect of right wrist History of cerebral aneurysm Mixed hyperlipidemia Polyosteoarthritis, unspecified Post-menopause Primary osteoarthritis of both knees Screening for breast cancer Screening for colon cancer Screening for osteoporosis Surgical History Surgical History History of brain surgery 2012 History of tonsillectomy History of total hysterectomy 1986 History of total left knee replacement (~01/06/21) History of total right knee replacement (~11/28/18) Family History Family History Sibling Family history of rheumatoid arthritis Patient's brother is in good health Mother Carcinoma of colon, Onset Age: 60 Patient's mother is Father Patient's father is Acute myocardial infarction, Onset Age: 54 Family history of cardiovascular disease Sibling Lung cancer Social History Social History Smoking status: Never smoker Tobacco type: cigarettes Second hand tobacco smoke exposure: No Smoking end date: 03/21/1967 Additional smoking assessment comments: PT STATES SMOKING SOCIALLY FOR SHORT TIME QUIT 1967 Alcohol intake: never Alcohol use details: STATES MAYBE 6-8 TIMES A YEAR Substance use: never Substance use type: does not use 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 Please see nursing chart for further information. There is no relevant family history pertinent to the presenting complaint Exam Narrative: GENERAL: Well-appearing HEAD: Normocephalic, atraumatic. EYES: conjunctivae clear, and EOMI. ENT: Mucous membranes moist. Oropharynx without edema, erythema or lesions. NECK: Supple. No lymphadenopathy CHEST: Clear to auscultation. No respiratory distress. HEART: Regular rate and rhythm. SKIN: Warm, dry. right thumb laceration, c-shaped, well approximated; no active drainage, bleeding controlled NEURO: Alert and oriented x3. PSYCH: Normal mood and affect Course Course Emergency Course: Patient is aware of diagnosis, understands and agrees to treatment plan. Anticipatory guidance given. Patient agrees to follow-up as directed and is aware of reasons to seek care at the emergency department. Portions of this record may have been created with voice recognition software Level of Care: Express Care Visit Vital Signs Vital signs: Vit
== END 2021-08-11 13:57 | disposition home or self-care (01) ==
PROVIDERS: Emergency Provider Nurse Practitioner Family; PCP Internal Medicine
DX: S61.011A Laceration without foreign body of right thumb without damage to nail, initial encounter (principal); W01.0XXA Fall on same level from slipping, tripping and stumbling without subsequent striking against object, initial encounter; S41.112D Laceration without foreign body of left upper arm, subsequent encounter; X58.XXXD Exposure to other specified factors, subsequent encounter; I10 Essential (primary) hypertension; E78.2 Mixed hyperlipidemia; M17.0 Bilateral primary osteoarthritis of knee; Z96.653 Presence of artificial knee joint, bilateral
CPT/HCPCS: 99212; G0463

== ENCOUNTER 2022-01-05 07:14 | Outpatient (CLI) | payer MEDICARE, OTHER, SELFPAY ==
[2022-01-05 07:36] LABS: Basophils Percent Auto 0.8 % (0.2-1.2); Eosinophils Absolute Auto 0.3 K/mm3 (0-0.3); Eosinophils Percent Auto 5.6 % (0-4.4); Hematocrit 44.3 % (37.0-47.0); Hemoglobin 15.1 g/dL (12.0-15.0); Immature Granulocyte Absolute 0.01 K/mm3 (0.00-0.031); Immature Granulocyte Percent A 0.2 % (0-0.5); Lymphocytes Absolute Auto 2.19 K/mm3 (0.9-3.2); Lymphocytes Percent Auto 45.1 % (18.3-44.2); Mean Corpuscular HGB Conc 34.1 g/dl (32-36); Mean Corpuscular Hemoglobin 31.5 pg (26-34); Mean Corpuscular Volume 92.3 fl (80-100); Mean Platelet Volume 9.5 fl (7.4-10.4); Monocytes Absolute Auto 0.4 K/mm3 (0.1-0.6); Neutrophils Percent Auto 40.3 % (45.5-73.1); Platelet Count Result 272 k/mm3 (150-375); Red Cell Distribution Width 12.2 % (11.5-14.5); White Blood Count 4.9 K/mm3 (4.5-10.0)
[2022-01-05 07:45] LABS: Alanine Aminotransferase 18 U/L (6-35); Albumin Level 4.5 g/dL (3.5-5.1); Alkaline Phosphatase 80 U/L (38-126); Anion Gap 10 mmol/L (8-16); Aspartate Amino Transferase 26 U/L (14-36); Bilirubin,Total 0.6 mg/dL (0.2-1.3); Blood Urea Nitrogen 9 mg/dL (7-17); Calcium 9.9 mg/dL (8.4-10.2); Carbon Dioxide 28 mmol/L (22-30); Chloride 103 mmol/L (98-107); Cholesterol 163 mg/dL (0-200); Estimated Glomerular Filt Rate > 60; Glucose 118 mg/dL (65-110); HDL Direct 44 mg/dL; Potassium 3.6 mmol/L (3.4-5.0); Sodium 141 mmol/L (137-145); Triglycerides 94 mg/dL (<150)
[2022-01-05 07:56] LABS: LDL Cholesterol Direct 89 mg/dL
[2022-01-05 08:14] LABS: Vitamin D 25 Hydroxy 44.6 ng/mL
[2022-01-05 08:33] LABS: Hemoglobin A1C 5.7 % (<5.7)
== END 2022-01-05 07:15 | disposition home or self-care (01) ==
LOC: ANHLAB 07:18
PROVIDERS: PCP Internal Medicine; Visit Provider Internal Medicine
DX: Z13.0 Encounter for screening for diseases of the blood and blood-forming organs and certain disorders involving the immune mechanism (principal); I10 Essential (primary) hypertension; E78.2 Mixed hyperlipidemia; R73.02 Impaired glucose tolerance (oral); E55.9 Vitamin D deficiency, unspecified
CPT/HCPCS: 36415; 80053; 80061; 82306; 83036; 85025

== ENCOUNTER 2022-01-15 13:40 | Emergency (ER) | payer MEDICARE, OTHER, SELFPAY ==
--- NOTE | ~2022-01-15 | CT_ITS ---
EXAMINATION: CT abdomen pelvis w con DATE: 01/15/2022 15:27 INDICATION: Nausea and vomiting. Abdominal pain. TECHNIQUE: Computed tomography (CT) of the abdomen and pelvis was performed with 100 mL Omnipaque 350 intravenous contrast. Automated exposure control and iterative reconstruction technique were employe d. The dose-length product was 370.78 mGy-cm. COMPARISON: None. FINDINGS: The visualized portions of the lung bases demonstrate mild atelectasis. No pleural effusion . The heart size is normal. No pericardial effusion. There is a small sliding hiatal hernia. There ar e cysts in the liver measuring up to 7.2 cm. The gallbladder, spleen, pancreas, and adrenal glands ar e normal. There is a 7 mm cyst in right kidney. There is a small area of focal volume loss of left ki dney. There is diverticulosis of the colon without evidence of diverticulitis. There are no dilated l oops of bowel. The appendix is not visualized. There are no pathologically enlarged lymph nodes. Ther e is no free intraperitoneal fluid. There is severe lumbar spondylosis. Lumbar dextrocurvature is not ed. IMPRESSION: 1. Small sliding hiatal hernia. Reviewed, dictated and finalized at location A.
[2022-01-15 13:46] VITALS: BP 172/71; PULSE 63; RESP 18; TEMP 36.2; O2SAT 95
--- NOTE | 2022-01-15 14:06 | ED.NAVMDI ---
HPI - Nausea/Vomiting/Diarrhea General Chief complaint: Nausea/Vomiting/Diarrhea Stated complaint: sudden onset N/V Time Seen by Provider: 01/15/22 13:41 Source: patient, EMS and RN notes reviewed Mode of arrival: EMS Limitations: no limitations History of Present Illness HPI Narrative: 81 years old white female came from home by ambulance because of sudden onset of nausea and vomiting started around noon today which is present 2 hours ago. She denies any fever, chills, diarrhea, constipation, urinary symptoms, chest pain or shortness of breath or back pain. History of abdominal pain for months, today is not different than before, scheduled for colonoscopy by Dr. Espinal February 2020 Related Data Home Medications Medication Instructions Recorded Confirmed cholecalciferol (vitamin D3) 25 25 mcg PO DAILY 06/11/20 01/08/22 mcg (1,000 unit) capsule Allergies Allergy/AdvReac Type Severity Reaction Status Date / Time adhesive tape Allergy Intermediate REDNESS Verified 01/07/22 10:12 Review of Systems Review of Systems: All systems reviewed & are unremarkable except as noted in HPI and below PMFSH Past Medical History Medical History Essential hypertension Ganglion cyst of volar aspect of right wrist History of cerebral aneurysm Mixed hyperlipidemia Polyosteoarthritis, unspecified Post-menopause Primary osteoarthritis of both knees Screening for breast cancer Screening for colon cancer Screening for osteoporosis Surgical History Surgical History History of brain surgery 2012 History of tonsillectomy History of total hysterectomy 1985 History of total left knee replacement (~01/06/21) History of total right knee replacement (~11/28/18) Family History Family History Sibling Family history of rheumatoid arthritis Patient's brother is in good health Mother Carcinoma of colon, Onset Age: 60 Patient's mother is Father Patient's father is Acute myocardial infarction, Onset Age: 54 Family history of cardiovascular disease Sibling Lung cancer Social History Social History Smoking status: Never smoker Second hand tobacco smoke exposure: No Smoking end date: 03/21/1967 Additional smoking assessment comments: PT STATES SMOKING SOCIALLY FOR SHORT TIME QUIT 1968 Alcohol intake: never Alcohol use details: STATES MAYBE 6-8 TIMES A YEAR Substance use: never Substance use type: does not use Has the Lack of Transportation Kept You From Medical Appointments or From Getting Medications?: No Within the Past 12 Months, Were You Worried Whether Your Food Would Run Out Before You Got Money to Buy More?: Never True What is Your Housing Situation Today?: I Have Housing Are You Worried That in the Next 2 Months, You May Not Have Your Own Housing to Live In?: No Do You Have Trouble Paying Your Heating Or Electricity Bill?: No Do You Have Trouble Paying For Medicines?: No Are You Currently Unemployed and Looking for Work?: No Highest Level of Education Completed: High School Diploma/GED Do You Have Trouble With Childcare or the Care of a Family Member?: No Additional occupation/education comments: [employer] D[employer] (Part-time) Spiritual care concerns: No Exam Narrative: General appearance: Well-developed, well-nourished, looks lethargic Skin: Normal color Head: Normocephalic, nontraumatic Eyes: Clear conjunctiva ENT: Oropharynx normal, ears normal, nose normal Neck: Supple, nontender Chest and respiratory: Airway patent, no respiratory distress, no accessory muscle use Heart: Regular rate/rhythm Abdomen: Soft, nontender, no organomegaly, quiet bowel sounds Vascular: Normal peripheral pulses, normal capillary refill. Musculoskeletal: Normal range
[2022-01-15] MEDS: ONDANSETRON INJ 4 MG/2 ML VIAL IV PUSH (14:20)
[2022-01-15] MEDS: SODIUM CHLORIDE 0.9% IV 1,000 ML 999 ML IV CONT (14:21)
[2022-01-15 14:43] LABS: Basophils Percent Auto 0.5 % (0.2-1.2); Eosinophils Absolute Auto 0.2 K/mm3 (0-0.3); Eosinophils Percent Auto 2.5 % (0-4.4); Hematocrit 38.8 % (37.0-47.0); Immature Granulocyte Absolute 0.01 K/mm3 (0.00-0.031); Immature Granulocyte Percent A 0.2 % (0-0.5); Lymphocytes Absolute Auto 1.52 K/mm3 (0.9-3.2); Lymphocytes Percent Auto 24.9 % (18.3-44.2); Mean Corpuscular HGB Conc 36.1 g/dl (32-36); Mean Corpuscular Hemoglobin 31.2 pg (26-34); Mean Corpuscular Volume 86.4 fl (80-100); Mean Platelet Volume 8.9 fl (7.4-10.4); Monocytes Absolute Auto 0.4 K/mm3 (0.1-0.6); Monocytes Percent Auto 6.2 % (2.6-8.5); Neutrophils Percent Auto 65.7 % (45.5-73.1); Platelet Count Result 241 k/mm3 (150-375); Red Blood Count 4.49 M/mm3 (4.2-5.4); Red Cell Distribution Width 11.9 % (11.5-14.5); White Blood Count 6.1 K/mm3 (4.5-10.0)
[2022-01-15 15:01] LABS: Alanine Aminotransferase 17 U/L (6-35); Albumin Level 4.3 g/dL (3.5-5.1); Alkaline Phosphatase 72 U/L (38-126); Anion Gap 10 mmol/L (8-16); Aspartate Amino Transferase 25 U/L (14-36); Bilirubin,Total 0.7 mg/dL (0.2-1.3); Blood Urea Nitrogen 11 mg/dL (7-17); Calcium 8.6 mg/dL (8.4-10.2); Carbon Dioxide 22 mmol/L (22-30); Chloride 102 mmol/L (98-107); Estimated Glomerular Filt Rate > 60; Glucose 132 mg/dL (65-110); Lipase 37 U/L (23-300); Potassium 3.4 mmol/L (3.4-5.0); Sodium 134 mmol/L (137-145)
[2022-01-15 16:46] LABS: Appearance Urine Clear (Clear); Bilirubin Urine Negative (Negative); Blood Urine Trace-lysed (Negative); Color Urine Yellow (Yellow); Glucose Urine UA Negative (Negative); Ketones Urine 1+ mg/dL (Negative); Leukocyte Esterase Ur Negative LEU/UL (Negative); Nitrate Urine Negative (Negative); Protein Urine Negative (Negative); Specific Grav Ur 1.015 (1.001-1.035); Urobilinogen Urine 0.2 mg/dL (<2.0); pH Urine 7.5 (5.0-9.0)
[2022-01-15 16:53] LABS: Bacteria Urine Trace /hpf; Mucus Urine Rare /lpf; RBC Urine 0-2 /hpf (0-2); WBC Urine 0-3 /hpf
[2022-01-15 16:59] LABS: Add Urine Microscopic? YES
== END 2022-01-15 18:24 | disposition home or self-care (01) ==
PROVIDERS: Emergency Provider Emergency Medicine; PCP Internal Medicine
DX: R11.10 Vomiting, unspecified (principal); I10 Essential (primary) hypertension; E78.2 Mixed hyperlipidemia
CPT/HCPCS: 36415; 74177; 80053; 81001; 83690; 85025; 96361; 96374; 99284; J2405; J7030; Q9967

== ENCOUNTER 2022-02-26 00:42 | Day surgery (SDC) | payer MEDICARE, OTHER, SELFPAY ==
[2022-02-18 13:02] VITALS: BMI 24.5
[2022-02-26 10:35] VITALS: BP 116/85; PULSE 60; RESP 19; TEMP 36.6; O2SAT 98; BMI 24.2
--- NOTE | 2022-02-26 10:51 | WPDANESEPPF ---
Anes - Initial Pre Proc Eval Procedure: Operation Date: 02/26/22 11:30 Proposed Procedures p Screening Colonoscopy - Samson Maher MD Date/Time: 02/26/22 10:51 Surgeon: Samson Maher MD Pre Op Diagnosis: family hx of colon cancer Patient Data Age: 81 Gender: F Height: 1.6 m Weight: 62 kg Last Vital Signs Temp 97.8 F 02/26/22 10:35 Pulse 60 02/26/22 10:35 Resp 19 02/26/22 10:35 BP 116/85 02/26/22 10:35 Pulse Ox 98 02/26/22 10:35 O2 Del Method Room Air 02/26/22 10:35 Allergies Allergy/AdvReac Type Severity Reaction Status Date / Time adhesive tape Allergy Intermediate REDNESS Verified 02/26/22 10:27 Home Medications Medication Instructions Recorded Confirmed Type cholecalciferol (vitamin D3) 25 25 mcg PO DAILY 06/11/20 02/18/22 History mcg (1,000 unit) capsule mometasone 0.1 % topical cream See Rx Instructions topical 09/30/20 02/18/22 Rx .COMPLEX #15 grams aspirin 81 mg tablet,delayed 81 mg PO BID 14 days #28 tabs 01/07/21 02/18/22 Rx release metoprolol succinate 25 mg See Rx Instructions .Route 09/22/21 02/18/22 Rx tablet,extended release 24 hr .COMPLEX #90 tabs simvastatin 20 mg tablet See Rx Instructions .Route 09/22/21 02/18/22 Rx .COMPLEX #90 tabs sodium,potassium,mag sulfates 17.5 See Rx Instructions PO .COMPLEX 01/14/22 02/18/22 Rx gram-3.13 gram-1.6 gram oral soln #354 mL (Suprep Bowel Prep Kit) Patient hx anesthesia problems: none Family hx anesthesia problems: none Results Review: All pre-operative results and documents have been reviewed as part of the pre-operative evaluation. [facility] Past Medical History Medical History Essential hypertension Ganglion cyst of volar aspect of right wrist History of cerebral aneurysm Mixed hyperlipidemia Polyosteoarthritis, unspecified Post-menopause Primary osteoarthritis of both knees Screening for breast cancer Screening for colon cancer Screening for osteoporosis Surgical History Surgical History History of brain surgery 2012 History of tonsillectomy History of total hysterectomy 1985 History of total left knee replacement (~01/06/21) History of total right knee replacement (~11/28/18) Family History Family History Sibling Family history of rheumatoid arthritis Patient's brother is in good health Mother Carcinoma of colon, Onset Age: 60 Patient's mother is Father Patient's father is Acute myocardial infarction, Onset Age: 54 Family history of cardiovascular disease Sibling Lung cancer Social History Social History Smoking status: Former smoker Second hand tobacco smoke exposure: No Smoking end date: 03/21/1967 Additional smoking assessment comments: PT STATES SMOKING SOCIALLY FOR SHORT TIME QUIT 1967 Alcohol intake: never Alcohol use details: STATES MAYBE 6-8 TIMES A YEAR Substance use: never Substance use type: does not use Lack of Transportation: No Lack of Food: Never True Current Housing: I Have Housing Concerned About Future Housing: No Difficulty Paying Gas/Electric Bills: No Difficulty Paying for Meds: No Currently Unemployed: No Education: High School Diploma/GED Difficulty w/ Childcare or Family Care: No Living arrangements: alone 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
[2022-02-26] MEDS: LACTATED RINGERS 1,000 ML 150 ML IV CONT (10:57)
--- NOTE | 2022-02-26 11:14 | PM.HPGS ---
History of Present Illness History of Present Illness Consent: Risks, benefits, and alternatives have been discussed and questions answered. Patient agrees to proceed with procedure. Chief complaint: family hx of colon cancer Narrative: Akanksha Banuelos is a 81 year old female Presents for screening colonoscopy. Patient reports that her current weight appetite and bowel movements are normal. Patient denies abdominal pain. She has had no bleeding. Previous colonoscopy 5 years ago was unremarkable. Family history is significant her mother and nephew have had colon cancer. Her son recently identified to have colon polyps. Patient presents today for screening colonoscopy. Review of Systems Review of Systems: Review of systems noncontributory. [facility] Past Medical History Medical History Essential hypertension Ganglion cyst of volar aspect of right wrist History of cerebral aneurysm Mixed hyperlipidemia Polyosteoarthritis, unspecified Post-menopause Primary osteoarthritis of both knees Screening for breast cancer Screening for colon cancer Screening for osteoporosis Surgical History Surgical History History of brain surgery 2012 History of tonsillectomy History of total hysterectomy 1986 History of total left knee replacement (~01/06/21) History of total right knee replacement (~11/28/18) Family History Family History Sibling Family history of rheumatoid arthritis Patient's brother is in good health Mother Carcinoma of colon, Onset Age: 60 Patient's mother is Father Patient's father is Acute myocardial infarction, Onset Age: 54 Family history of cardiovascular disease Sibling Lung cancer Social History Social History Smoking status: Former smoker Second hand tobacco smoke exposure: No Smoking end date: 03/21/1967 Additional smoking assessment comments: PT STATES SMOKING SOCIALLY FOR SHORT TIME QUIT 1967 Alcohol intake: never Alcohol use details: STATES MAYBE 6-8 TIMES A YEAR Substance use: never Substance use type: does not use Lack of Transportation: No Lack of Food: Never True Current Housing: I Have Housing Concerned About Future Housing: No Difficulty Paying Gas/Electric Bills: No Difficulty Paying for Meds: No Currently Unemployed: No Education: High School Diploma/GED Difficulty w/ Childcare or Family Care: No Living arrangements: alone 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) Spiritual care concerns: No Meds Home Medications and Allergies Home Medications Medication Instructions Recorded Confirmed Type cholecalciferol (vitamin D3) 25 25 mcg PO DAILY 06/11/20 02/18/22 History mcg (1,000 unit) capsule mometasone 0.1 % topical cream See Rx Instructions topical 09/30/20 02/18/22 Rx .COMPLEX #15 grams aspirin 81 mg tablet,delayed 81 mg PO BID 14 days #28 tabs 01/07/21 02/18/22 Rx release metoprolol succinate 25 mg See Rx Instructions .Route 09/22/21 02/18/22 Rx tablet,extended release 24 hr .COMPLEX #90 tabs simvastatin 20 mg tablet See Rx Instructions .Route 09/22/21 02/18/22 Rx .COMPLEX #90 tabs sodium,potassium,mag sulfates 17.5 See Rx Instructions PO .COMPLEX 01/14/22 02/18/22 Rx gram-3.13 gram-1.6 gram oral soln #354 mL (Suprep Bowel Prep Kit) Allergies Allergy/AdvReac Type Severity Reaction Status Date / Time adhesive tape Allergy Intermediate REDNESS Verified 02/26/22 10:27 Vital Signs Vital Signs - 24 hr 02/26/22 10:35 Temperature 97.8 F Pulse Rate 60 Respiratory Rate 19 Blood Pressure 116/85 Pulse Oximetry 98 Oxygen Delivery Room Air Exam Narrative: Physical exam reveals patient to be aler
[2022-02-26 11:46] VITALS: BP 105/60; PULSE 68; RESP 23; O2SAT 98
[2022-02-26 11:56] VITALS: BP 119/78; PULSE 65; RESP 16; O2SAT 99
[2022-02-26 12:06] VITALS: BP 146/74; PULSE 64; RESP 20; O2SAT 98
== END 2022-02-26 12:13 | disposition home or self-care (01) ==
PROVIDERS: PCP Internal Medicine; Visit Provider Internal Medicine Gastroenterology
PROC: 0DJD8ZZ Inspection of Lower Intestinal Tract, Via Natural or Artificial Opening Endoscopic (ICD-10-PCS; CPT 45378; principal; 2022-02-26 11:30)
DX: Z12.11 Encounter for screening for malignant neoplasm of colon (principal); K57.30 Diverticulosis of large intestine without perforation or abscess without bleeding; K64.1 Second degree hemorrhoids; Z80.0 Family history of malignant neoplasm of digestive organs; I10 Essential (primary) hypertension; E78.5 Hyperlipidemia, unspecified; Z87.891 Personal history of nicotine dependence; Z79.82 Long term (current) use of aspirin; Z96.653 Presence of artificial knee joint, bilateral
CPT/HCPCS: G0121; J2704; J7120

== ENCOUNTER 2022-03-09 10:08 | Outpatient (CLI) | payer MEDICARE, OTHER, SELFPAY ==
--- NOTE | ~2022-03-09 | US_ITS ---
EXAMINATION: US carotid duplex BI DATE: 03/09/2022 10:43 INDICATION: Other specified symptoms and signs involving the circulatory system. TECHNIQUE: Grayscale, color Doppler, and pulsed Doppler images of the cervical carotid arteries were obtained. The degree of vessel stenosis is placed in one of the following categories: normal, <50%, 5 0-69%, >=70% but less than near-occlusion, near-occlusion, or total occlusion. Note that percent sten osis relative to normal distal artery lumen diameter is indirectly measured from velocity measurement s as described by Joshua, et al. Radiology 2003; 229:340-346. COMPARISON: Ultrasound carotid 02/24/2021 FINDINGS: RIGHT: The right common carotid artery (CCA) peak systolic velocity (PSV) is 93 cm/s. The right internal car otid artery (ICA) PSV is 85 cm/s. The right ICA end-diastolic velocity (EDV) is 28 cm/s. The right IC A/CCA PSV ratio is 0.9. Grayscale and color Doppler images yield an estimate of <50% diameter reducti on from plaque in the ICA. There is antegrade flow in the right vertebral artery. LEFT: The left CCA PSV is 96 cm/s. The left ICA PSV is 59 cm/s. The left ICA EDV is 18 cm/s. The left ICA/C CA PSV ratio is 0.9. Grayscale and color Doppler images yield an estimate of <50% diameter reduction from plaque in the ICA. There is antegrade flow in the left vertebral artery. IMPRESSION: 1. <50% stenosis in the right internal carotid artery. 2. <50% stenosis in the left internal carotid artery. Reviewed, dictated and finalized at location A. [facility]
== END 2022-03-09 10:09 | disposition home or self-care (01) ==
LOC: ANHIMG 10:10
PROVIDERS: PCP Internal Medicine; Visit Provider Internal Medicine
DX: R09.89 Other specified symptoms and signs involving the circulatory and respiratory systems (principal); I65.23 Occlusion and stenosis of bilateral carotid arteries
CPT/HCPCS: 93880

== ENCOUNTER 2022-07-15 07:09 | Outpatient (CLI) | payer MEDICARE, OTHER, SELFPAY ==
[2022-07-15 08:14] LABS: Alanine Aminotransferase 21 U/L (6-35); Albumin Level 4.5 g/dL (3.5-5.1); Alkaline Phosphatase 68 U/L (38-126); Anion Gap 5 mmol/L (8-16); Aspartate Amino Transferase 32 U/L (14-36); Bilirubin,Total 0.7 mg/dL (0.2-1.3); Blood Urea Nitrogen 9 mg/dL (7-17); Calcium 9.7 mg/dL (8.4-10.2); Carbon Dioxide 31 mmol/L (22-30); Chloride 103 mmol/L (98-107); Cholesterol 161 mg/dL (0-200); Estimated Glomerular Filt Rate > 60; Glucose 105 mg/dL (65-110); HDL Direct 54 mg/dL; Potassium 3.5 mmol/L (3.4-5.0); Sodium 139 mmol/L (137-145); Triglycerides 108 mg/dL (<150)
[2022-07-15 08:19] LABS: Hemoglobin A1C 5.2 % (<5.7)
[2022-07-15 08:36] LABS: LDL Cholesterol Direct 80 mg/dL
[2022-07-15 08:46] LABS: Vitamin D 25 Hydroxy 45.8 ng/mL
== END 2022-07-15 07:10 | disposition home or self-care (01) ==
PROVIDERS: PCP Internal Medicine; Visit Provider Internal Medicine
DX: E78.5 Hyperlipidemia, unspecified (principal); R73.02 Impaired glucose tolerance (oral); E55.9 Vitamin D deficiency, unspecified
CPT/HCPCS: 36415; 80053; 80061; 82306; 83036

== ENCOUNTER 2023-01-24 07:08 | Outpatient (CLI) | payer MEDICARE, OTHER, SELFPAY ==
[2023-01-24 07:41] LABS: Appearance Urine Clear (Clear); Bacteria Urine None Seen /hpf; Bilirubin Urine Negative (Negative); Blood Urine Negative (Negative); Color Urine Yellow (Yellow); Glucose Urine UA Negative (Negative); Ketones Urine Negative (Negative); Leukocyte Esterase Ur 2+ LEU/UL (Negative); Nitrate Urine Negative (Negative); Non Pathogenic Casts 0-2; Protein Urine Negative (Negative); RBC Urine 0-2 /hpf (0-2); Specific Grav Ur 1.008 (1.001-1.035); Squamous Epithelial Cell Urine None seen /hpf (Few); Urobilinogen Urine 0.2 mg/dL (<2.0); pH Urine 7.5 (5.0-9.0)
[2023-01-24 07:45] LABS: Add Urine Microscopic? YES
[2023-01-24 07:48] LABS: Alanine Aminotransferase 17 U/L (6-35); Albumin Level 4.3 g/dL (3.5-5.1); Alkaline Phosphatase 72 U/L (38-126); Anion Gap 4 mmol/L (8-16); Aspartate Amino Transferase 24 U/L (14-36); Bilirubin,Total 0.8 mg/dL (0.2-1.3); Blood Urea Nitrogen 7 mg/dL (7-17); Calcium 9.3 mg/dL (8.4-10.2); Carbon Dioxide 28 mmol/L (22-30); Chloride 105 mmol/L (98-107); Cholesterol 183 mg/dL (0-200); Estimated Glomerular Filt Rate > 60; Glucose 115 mg/dL (65-110); HDL Direct 54 mg/dL; Potassium 3.6 mmol/L (3.4-5.0); Sodium 137 mmol/L (137-145); Triglycerides 108 mg/dL (<150)
[2023-01-24 07:59] LABS: LDL Cholesterol Direct 92 mg/dL
== END 2023-01-24 07:09 | disposition home or self-care (01) ==
PROVIDERS: PCP Nurse Practitioner; Visit Provider Nurse Practitioner
DX: R39.9 Unspecified symptoms and signs involving the genitourinary system (principal); E78.5 Hyperlipidemia, unspecified
CPT/HCPCS: 36415; 80053; 80061; 81001; 87086; 87088

== ENCOUNTER 2023-02-21 06:57 | Emergency (ER) | payer MEDICARE, OTHER, SELFPAY ==
[2023-02-21 06:58] VITALS: BP 159/76; PULSE 80; RESP 16; TEMP 36.5; O2SAT 100
--- NOTE | 2023-02-21 07:25 | ED.GENADULT ---
HPI - General Adult General Chief complaint: Urogenital-Female Stated complaint: peeing blood Time Seen by Provider: 02/21/23 07:09 History of Present Illness HPI narrative: Patient is an 82-year-old female who presents ER with blood in her urine. She woke up this morning and when she would use the restroom there is only blood in her urine. She feels some suprapubic pressure. She reports for the last 2 days she has had some mild discomfort with urinating. No fevers or chills or sweats. She is not on any blood thinning medications. Has history of diverticulitis in the past for this is different. Patient also endorses some diarrhea that his essentially resolved since being on amoxicillin 1 week ago for dental procedure. Related Data Home Medications Medication Instructions Recorded Confirmed cholecalciferol (vitamin D3) 25 25 mcg PO DAILY 06/11/20 01/25/23 mcg (1,000 unit) capsule aspirin 81 mg tablet,delayed 81 mg PO DAILY 07/16/22 01/25/23 release zhhlxhohmgue-rqmkbbjb-anysqg tablet 1 tablet PO DAILY 07/16/22 01/25/23 Allergies Allergy/AdvReac Type Severity Reaction Status Date / Time adhesive tape Allergy Intermediate REDNESS Verified 01/25/23 09:36 Latex, Natural Rubber Allergy Swelling Verified 02/21/23 06:58 Review of Systems Constitutional: Constitutional: Denies chills, Denies fatigue and Denies fever(s) Gastrointestinal: Gastrointestinal: Denies abdominal pain, Reports diarrhea, Denies nausea and Denies vomiting Genitourinary: Genitourinary: Reports hematuria, Reports dysuria and Reports pelvic pain PMFSH Past Medical History Medical History Essential hypertension Ganglion cyst of volar aspect of right wrist History of cerebral aneurysm Mixed hyperlipidemia Polyosteoarthritis, unspecified Post-menopause Primary osteoarthritis of both knees Screening for breast cancer Screening for colon cancer Screening for osteoporosis Surgical History Surgical History History of brain surgery 2012 History of tonsillectomy History of total hysterectomy 1986 History of total left knee replacement (~01/06/21) History of total right knee replacement (~11/28/18) Family History Family History Sibling Family history of rheumatoid arthritis Patient's brother is in good health Mother Carcinoma of colon, Onset Age: 60 Patient's mother is Father Patient's father is Acute myocardial infarction, Onset Age: 54 Family history of cardiovascular disease Sibling Lung cancer Social History Social History Smoking status: Former smoker Second hand tobacco smoke exposure: No Smoking end date: 03/21/1967 Additional smoking assessment comments: PT STATES SMOKING SOCIALLY FOR SHORT TIME QUIT 1967 Alcohol intake: never Alcohol use details: STATES MAYBE 6-8 TIMES A YEAR Substance use: never Substance use type: does not use Lack of Transportation: No Lack of Food: Never True Current Housing: I Have Housing Concerned About Future Housing: No Difficulty Paying Gas/Electric Bills: No Difficulty Paying for Meds: No Currently Unemployed: No Education: High School Diploma/GED Difficulty w/ Childcare or Family Care: No Living arrangements: alone Occupation/Education: occupation 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 HEAD: Normocephalic, atraumatic. ENT: Mucous membranes moist. CHEST: Clear to auscultation. No respiratory distress. HEART: Regular rate and rhythm. Normal peripheral pulses. ABDOMEN: Soft, nontender, nondistended. No CVA tenderness EXTREMITIES: N
[2023-02-21 08:01] LABS: Bacteria Urine None Seen /hpf; Need Manual Microscopic Reviewed; Non Pathogenic Casts 0-2; RBC Urine >100 /hpf (0-2); Squamous Epithelial Cell Urine None seen /hpf (Few); WBC Urine >100 /hpf
[2023-02-21 08:05] LABS: Appearance Urine Turbid (Clear); Color Urine Red (Yellow)
[2023-02-21 08:09] LABS: Add Urine Microscopic? YES
[2023-02-21 08:56] VITALS: BP 150/78; PULSE 76; RESP 16; TEMP 36.6; O2SAT 97
== END 2023-02-21 08:58 | disposition home or self-care (01) ==
PROVIDERS: Emergency Medicine; Emergency Provider Emergency Medicine; PCP Nurse Practitioner
DX: N30.01 Acute cystitis with hematuria (principal); I10 Essential (primary) hypertension; E78.2 Mixed hyperlipidemia; M19.90 Unspecified osteoarthritis, unspecified site; M17.0 Bilateral primary osteoarthritis of knee; Z96.653 Presence of artificial knee joint, bilateral; Z87.891 Personal history of nicotine dependence; Z79.82 Long term (current) use of aspirin
CPT/HCPCS: 81001; 87086; 87088; 99283

== ENCOUNTER 2023-03-02 11:28 | Outpatient (CLI) | payer MEDICARE, OTHER, SELFPAY ==
[2023-03-02 12:05] LABS: Appearance Urine Clear (Clear); Bacteria Urine None Seen /hpf; Bilirubin Urine Negative (Negative); Blood Urine Trace (Negative); Color Urine Yellow (Yellow); Glucose Urine UA Negative (Negative); Ketones Urine Negative (Negative); Leukocyte Esterase Ur Negative LEU/UL (Negative); Nitrate Urine Negative (Negative); Non Pathogenic Casts 0-2; Protein Urine Negative (Negative); RBC Urine 0-2 /hpf (0-2); Specific Grav Ur 1.005 (1.001-1.035); Squamous Epithelial Cell Urine None seen /hpf (Few); Urobilinogen Urine 0.2 mg/dL (<2.0); WBC Urine 0-5 /hpf; pH Urine 6.5 (5.0-9.0)
[2023-03-02 12:19] LABS: Add Urine Microscopic? YES
== END 2023-03-02 11:29 | disposition home or self-care (01) ==
LOC: ANHLAB 11:31
PROVIDERS: PCP Nurse Practitioner; Visit Provider Nurse Practitioner
DX: N39.0 Urinary tract infection, site not specified (principal); R39.9 Unspecified symptoms and signs involving the genitourinary system
CPT/HCPCS: 81001

== ENCOUNTER 2023-08-09 07:17 | Outpatient (CLI) | payer MEDICARE, OTHER, SELFPAY ==
[2023-08-09 08:17] LABS: Alanine Aminotransferase 18 U/L (6-35); Albumin Level 4.6 g/dL (3.5-5.1); Alkaline Phosphatase 71 U/L (38-126); Anion Gap 7 mmol/L (4-12); Aspartate Amino Transferase 28 U/L (14-36); Bilirubin,Total 0.7 mg/dL (0.2-1.3); Blood Urea Nitrogen 10 mg/dL (7-17); Calcium 9.7 mg/dL (8.4-10.2); Carbon Dioxide 27 mmol/L (22-30); Chloride 105 mmol/L (98-107); Estimated Glomerular Filt Rate > 60; Glucose 113 mg/dL (65-110); Potassium 3.6 mmol/L (3.4-5.0); Sodium 139 mmol/L (137-145)
[2023-08-09 08:19] LABS: Hematocrit 44.6 % (37.0-47.0); Hemoglobin 14.9 g/dL (12.0-15.0); Mean Corpuscular HGB Conc 33.4 g/dl (32-36); Mean Corpuscular Hemoglobin 31.3 pg (26-34); Mean Corpuscular Volume 93.7 fl (80-100); Mean Platelet Volume 9.5 fl (7.4-10.4); Platelet Count Result 281 k/mm3 (150-375); Red Blood Count 4.76 M/mm3 (4.2-5.4); Red Cell Distribution Width 12.3 % (11.5-14.5); White Blood Count 5.5 K/mm3 (4.5-10.0)
[2023-08-09 08:32] LABS: Hemoglobin A1C 5.2 % (<5.7)
== END 2023-08-09 07:18 | disposition home or self-care (01) ==
LOC: ANHLAB 07:20
PROVIDERS: PCP Nurse Practitioner; Visit Provider Nurse Practitioner
DX: R73.02 Impaired glucose tolerance (oral) (principal); E78.5 Hyperlipidemia, unspecified; I10 Essential (primary) hypertension
CPT/HCPCS: 36415; 80053; 83036; 85027

== ENCOUNTER 2023-12-01 14:06 | Outpatient (CLI) | payer MEDICARE, OTHER, SELFPAY ==
--- NOTE | ~2023-12-01 | MM_ITS ---
EXAMINATION: MM screening hector BI w conrad HISTORY: Screening mammogram TECHNIQUE: Craniocaudal and mediolateral oblique 3-D tomosynthesis images were obtained and synthetic 2-D images were generated. CAD analysis was submitted and interpreted. COMPARISON: No prior mammogram is available for comparison at this institution. BREAST PARENCHYMAL COMPOSITION:Dense: The breasts are heterogeneously dense, which may obscure small masses. FINDINGS: No suspicious mass, calcification, or architectural distortion are identified in either cherry ast to suggest malignancy. There has been no suspicious interval change. IMPRESSION: No mammographic evidence of malignancy. Recommend routine screening mammography in one year. BI-RADS Category 1: Negative Reviewed, dictated and finalized at location .
== END 2023-12-01 14:07 | disposition home or self-care (01) ==
LOC: ANHIMG 14:07
PROVIDERS: PCP Nurse Practitioner; Visit Provider Nurse Practitioner
DX: Z12.31 Encounter for screening mammogram for malignant neoplasm of breast (principal)
CPT/HCPCS: 77063; 77067

== ENCOUNTER 2024-02-20 07:58 | Outpatient (CLI) | payer MEDICARE, OTHER, SELFPAY ==
[2024-02-20 08:39] LABS: Alanine Aminotransferase 17 U/L (6-35); Albumin Level 4.4 g/dL (3.5-5.1); Alkaline Phosphatase 71 U/L (38-126); Anion Gap 5 mmol/L (4-12); Aspartate Amino Transferase 28 U/L (14-36); Bilirubin,Total 0.7 mg/dL (0.2-1.3); Blood Urea Nitrogen 10 mg/dL (7-17); Calcium 9.4 mg/dL (8.4-10.2); Carbon Dioxide 28 mmol/L (22-30); Chloride 103 mmol/L (98-107); Cholesterol 180 mg/dL (0-200); Estimated Glomerular Filt Rate > 60; Glucose 109 mg/dL (65-110); HDL Direct 57 mg/dL; Potassium 3.9 mmol/L (3.4-5.0); Sodium 136 mmol/L (137-145); Triglycerides 122 mg/dL (<150)
[2024-02-20 08:50] LABS: LDL Cholesterol Direct 81 mg/dL
== END 2024-02-20 07:59 | disposition home or self-care (01) ==
PROVIDERS: PCP Nurse Practitioner; Visit Provider Nurse Practitioner
DX: E78.5 Hyperlipidemia, unspecified (principal)
CPT/HCPCS: 36415; 80053; 80061

== ENCOUNTER 2024-08-27 07:20 | Outpatient (CLI) | payer MEDICARE, OTHER, SELFPAY ==
--- OUTSIDE RECORDS SUMMARY | 2024-08-27 07:28 | XMS_ITS | Clinical Summary ---
Author Organization [facility] Address [address] [place] [address] Care Team Providers Care Director Industrial Name Role Phone Kamran Pina MD Primary Care Provider [phone] Source Comments [facility],non-owned Affiliates and Associated Physician Practices is amultiple site organization consisting of ambulatory clinics and hospital sitesin [place], [place], [place] and [place]. This disclosure is being madepursuant to the Care Everywhere program and may not contain all information available regarding this patient. Last updated 17.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 Cerebral infarction 12/28/2012 Social History Tobacco Use Types Packs/Day Years Used Date Smoking Tobacco: Former Cigarettes Q uit: 03/06/1968 Smokeless Tobacco: Never Alcohol Use Standard Drinks/Week Comments No 0 (1 standard drink = 0.6 oz pur e alcohol) Comments Unknown Sex and Gender Information Value Date Recorded Sex Assigned at Not on file Legal Sex Female 6:37 PM [employer] Gender Identity Not on file Sexual Orientation Not on file Last Filed Vital Signs Vital Sign Reading Time Taken Comments Blood Pressure 142/83 05/03/2013 10:04 AM [employer] Pulse 79 05/03/2013 10:04 AM [employer] Temperature 36.7 C (98.1 F) 03/20/2013 7:58 AM [employer] Respiratory Rate 18 03/20/2013 7:58 AM [employer] Oxygen Saturation 97% 05/03/2013 10:04 AM [employer] Inhaled Oxygen Concentration - - Weight 68.2 kg (150 lb 6.4 oz) 05/03/2013 10:04 AM [employer] Height 165.1 cm (5' 5) 05/03/2013 10:04 AM [employer] Body Mass Index 25.03 05/03/2013 10:04 AM [employer] Plan of Treatment Health Maintenance Due Date Last Done Comments BONE DENSITY TESTING 1940 DTAP/TDAP/TD VACCINES (1 - Tdap) 05/30/1959 PNEUMOCOCCAL VACCINE 50+ (1 of 1 - PCV) 1990 ZOSTER VACCINE (1 of 2) 1990 Respiratory Syncytial Virus (RSV) Vaccine Pt: or over 60 yrs (1 - 1-dose 75+ series) 05/30/2015 COVID-19 VACCINE ( - 2023-2 5 season) 2023 DEPRESSION SCREENING 03/21/2024 INFLUENZA VACCINE (Season Ended) 2024 HEPATITIS B VACCINE Aged Out No longe r eligible based on patient's age to complete this topic HIB VACCINE Aged Out No longer eligi ble based on patient's age to complete this topic HPV VACCINE Aged Out No longer eligi ble based on patient's age to complete this topic MENINGOCOCCAL (Group B) VACC INE SHARED DECISION-MAKING Aged Out No longer eligibl e based on patient's age to complete this topic MENINGOCOCCAL GROUPS A/C/Y/W VACCINE Aged Out No longer eligible b ased on patient's age to complete this topic Care Teams Director Industrial Relationship Specialty Start Date End Date Kamran Pina MD [address] [facility] [address] [place] [address] PCP - General 03/23/13
[2024-08-27 07:52] LABS: Hematocrit 43.6 % (37.0-47.0); Mean Corpuscular HGB Conc 34.4 g/dl (32-36); Mean Corpuscular Hemoglobin 31.6 pg (26-34); Mean Corpuscular Volume 91.8 fl (80-100); Mean Platelet Volume 9.3 fl (7.4-10.4); Platelet Count Result 266 k/mm3 (150-375); Red Blood Count 4.75 M/mm3 (4.2-5.4); Red Cell Distribution Width 11.9 % (11.5-14.5); White Blood Count 4.6 K/mm3 (4.5-10.0)
[2024-08-27 08:02] LABS: Alanine Aminotransferase 20 U/L (6-35); Albumin Level 4.5 g/dL (3.5-5.1); Alkaline Phosphatase 68 U/L (38-126); Anion Gap 7 mmol/L (4-12); Aspartate Amino Transferase 33 U/L (14-36); Bilirubin,Total 0.7 mg/dL (0.2-1.3); Blood Urea Nitrogen 11 mg/dL (7-17); Calcium 10.3 mg/dL (8.4-10.2); Carbon Dioxide 25 mmol/L (22-30); Chloride 105 mmol/L (98-107); Cholesterol 183 mg/dL (0-200); Estimated Glomerular Filt Rate > 60; Glucose 114 mg/dL (65-110); HDL Direct 55 mg/dL; Potassium 3.7 mmol/L (3.4-5.0); Sodium 137 mmol/L (137-145); Total Protein 7.6 g/dL (6.3-8.2); Triglycerides 105 mg/dL (<150)
[2024-08-27 08:13] LABS: LDL Cholesterol Direct 87 mg/dL
[2024-08-27 08:27] LABS: Vitamin D 25 Hydroxy 42.8 ng/mL
[2024-08-27 09:07] LABS: Hemoglobin A1C 5.3 % (<5.7)
== END 2024-08-27 07:21 | disposition home or self-care (01) ==
PROVIDERS: PCP Internal Medicine; Visit Provider Nurse Practitioner
DX: E78.5 Hyperlipidemia, unspecified (principal); E55.9 Vitamin D deficiency, unspecified; I10 Essential (primary) hypertension; R73.02 Impaired glucose tolerance (oral)
CPT/HCPCS: 36415; 80053; 80061; 82306; 83036; 85027